=== PATIENT | female | born 1960 | race Two or more races ===

== ENCOUNTER → 2016-12-03 | Outpatient (CLI) | payer OTHER ==
--- NOTE | 2016-12-03 14:08 | RAD ---
Cervical spine, 3 views, 12/03/2016: History: Neck and shoulder pain The cervical vertebral heights and intervertebral disc spaces are well-maintained. There are mild scattered marginal spurs. There are minimal degenerative changes involving scattered facet joints. The prevertebral soft tissues are unremarkable. IMPRESSION: 1. Mild scattered degenerative changes. 2. No acute abnormality is detected.
== END | disposition home or self-care (01) ==
LOC: RAD 09:41
PROVIDERS: ATTEND Neuromusculoskeletal Medicine, Sports Medicine
DX: M54.2 Cervicalgia (principal); M19.012 Primary osteoarthritis, left shoulder; M19.011 Primary osteoarthritis, right shoulder
CPT/HCPCS: 72040

== ENCOUNTER → 2021-05-15 | Day surgery (SDC) | payer MEDICARE ==
[~2021-05-15] VITALS: Ht 152.4 cm; Wt 69.0 kg
[~2021-05-15] MED LIST: CHOL10004 PO; GABA-585 PO; IV RINGERS,LACTATED 1000ML 1,000 ML IV SCH; MAGN64TA6 PO; OMEG10005 PO; OMEP40CA7 PO; PROPOFOL 10 MG/ML (20ML) VIAL. IV ONE
[2021-05-15 08:52] VITALS: BP 171/74
[2021-05-15 09:13] VITALS: BP 171/74
[2021-05-15 11:00] VITALS: BP 112/56
--- NOTE | 2021-05-16 17:15 | PATHOLOGY ---
[facility] Accession Number: [id number] . 01 Material submitted: . PART A: small bowel - SMALL BOWEL BIOPSY PART B: gastrointestinal site - GASTRIC ANTRUM BODY BIOPSY PART C: esophagus - DISTAL ESOPHAGUS BIOPSY. Modifiers: distal PART D: esophagus - MID ESOPHAGUS BIOPSY. Modifiers: mid PART E: ileum - TERMINAL ILEUM BIOPSY PART F: colon - RIGHT COLON BIOPSY. Modifiers: right PART G: colon - LEFT COLON BIOPSY. Modifiers: left PART H: rectum - RECTUM BIOPSY . 01 Clinical history: . ABDOMINAL PAIN . 02 Diagnosis: A. Small bowel biopsy: - Preserved villous architecture with increased intraepithelial lymphocytes. See comment. . B. Gastric biopsy, gastric antrum and gastric body: - Chronic gastritis, mild. . C. Esophageal biopsy, distal esophagus: - Segments of gastric mucosa showing chronic inflammation. . D. Esophageal biopsy, middle esophagus: - Segments of mildly hyperplastic squamous esophageal mucosa consistent with reflux changes. . E. Small intestine mucosa, terminal ileum biopsy: - No diagnostic abnormalities. . F. Colonic mucosa, right colon biopsy: - No significant pathologic abnormalities with few hyperplastic mucosal-associated lymphoid aggregates. . G. Colonic mucosa, left colon biopsy: - No significant pathologic abnormalities with two hyperplastic mucosal-associated lymphoid aggregates. . H. Colorectal mucosa, rectal biopsy: - No significant pathologic abnormalities with few hyperplastic mucosal-associated lymphoid aggregates. (JPM:magno; 05/16/2021) [facility] 05/16/2021 1610 Local . 02 Comment: Sections of the small bowel biopsy reveal segments of duodenal and small intestine mucosa. The villous architecture is preserved and shows increased intraepithelial lymphocytes. The differential diagnosis includes celiac disease, bacterial overgrowth, nonsteroidal anti-inflammatory drug damage, reaction to Helicobacter pylori infection, tropical sprue, and chronic inflammatory bowel disease. Correlate clinically. . Sections of the gastric biopsy reveal gastric body and gastric antral mucosa showing congestion and mild chronic inflammation. A properly controlled immunoperoxidase stain for Helicobacter is negative for Helicobacter organisms. . Sections of the distal esophageal biopsy reveal segments of gastric mucosa showing mild to moderate chronic inflammation. There is no squamous esophageal mucosa. There is no evidence of Miguel's change, dysplasia, or malignancy. . Sections of the middle esophagus biopsy reveal segments of mildly hyperplastic squamous esophageal mucosa consistent with reflux changes. There is no evidence of Miguel's change, dysplasia, or malignancy. . Sections of the terminal ileum biopsy reveal small intestine mucosa showing no diagnostic abnormalities. . Sections of the right colon, left colon, and rectal biopsies appear similar and reveal segments of colonic and rectal mucosa containing several hyperplastic mucosal-associated lymphoid aggregates. There is no evidence of a chronic destructive colitis, lymphocytic colitis, or collagenous colitis. There is no evidence of acute colitis or ischemic colitis. (JPM:magno; 05/16/2021) . Special stain performed: Immunoperoxidase stain for Helicobacter on B1 . 02 Electronically signed: . Bowen Menendez MD, Pathologist NPI- [id number] . 01 Gross description: . A. The specimen is received in formalin, labeled "Jordan, Leticia, small bowel BX". Received are multiple fragments of pale toussaint tissue measuring 1.0 x 0.3 x 0.1 cm in aggregate dimensions. The specimen is filtered and entirely submitted in cassette A1. . B. The specimen is received in formalin, labeled "Jordan, Leticia, gastric antrum body BX". Received is a single segment of pale toussaint tissue measuring 0.4 cm in maximum dimension. The specimen is entirely submitted in cassette B1. . C. The specimen is received in formalin, labeled "Jordan, Leticia, distal esophagus BX". Received are 2 segments of pale toussaint to light brown tissue measuring 0.3 and 0.4 cm in maximum dimension. The specimen is entirely submitted in cassette C1. . D. The specimen is received in formalin, labeled "Jordan, Leticia, mid esophagus BX". Received are 2 segments of white-toussaint tissue both measuring 0.3 cm in maximum dimension. The specimen is entirely submitted in cassette D1. . E. The specimen is received in formalin, labeled "Jordan, Leticia, terminal ileum BX". Received is a single segment of pale toussaint tissue measuring 0.5 cm in maximum dimension. The specimen is entirely submitted in cassette E1. . F. The specimen is received in formalin, labeled "Jordan, Leticia, right colon BX". Received are 4 segments of pale toussaint tissue ranging in size from 0.3-0.7 cm in maximum dimension. The specimen is entirely submitted in cassette F1. . G. The specimen is received in formalin, labeled "Jordan, Leticia, left colon BX". Received are 4 segments of pale toussaint tissue ranging in size from 0.3-0.4 cm in maximum dimension. The specimen is entirely submitted in cassette G1. . H. The specimen is received in formalin, labeled "Jordan, Leticia, rectum BX". Received are 4 segments of pale toussaint tissue ranging in size from 0.3-0.5 cm in maximum dimension. The specimen is entirely submitted in cassette H1. ([facility]; 05/15/2021) NRI/NRI 05/15/2021 2140 Local . 02 Pathologist provided ICD-10: K29.50, K20.90 . 02 CPT . 371833, [id number], 749739, 410939, 340883, [id number], [id number], [id number], [id number] Specimen Comment: A courtesy copy of this report has been sent to [phone], [phone] Specimen Comment: [id number] Specimen Comment: Report sent to / DR ALVAREZ Specimen Comment: A duplicate report has been generated due to demographic updates. Performed at: 01 [facility] [address], [place], [place] [id number] MD Kareem Sam MD Phone: [phone] Performed at: 02 [facility] [address], [place] [id number] MD Bowen Menendez MD Phone: [phone]
== END | disposition home or self-care (01) ==
LOC: ENDOS 08:27
PROVIDERS: ATTEND Internal Medicine Gastroenterology
DX: K92.1 Melena (principal); R10.32 Left lower quadrant pain; K64.0 First degree hemorrhoids; K63.89 Other specified diseases of intestine; R13.10 Dysphagia, unspecified; K21.00 Gastro-esophageal reflux disease with esophagitis, without bleeding; K29.50 Unspecified chronic gastritis without bleeding; K31.89 Other diseases of stomach and duodenum; Z79.899 Other long term (current) drug therapy; Z90.710 Acquired absence of both cervix and uterus; Z98.890 Other specified postprocedural states; Z88.8 Allergy status to other drugs, medicaments and biological substances
CPT/HCPCS: 43239; 43450; 45380; J2704; 88305; 88342